=== PATIENT | male | born 1960 | race Caucasian/White ===

== ENCOUNTER 2018-03-26 23:12 | Emergency (ER) | payer SELFPAY ==
[~2018-03-26] VITALS: Ht 165.1 cm; Wt 77.3 kg
[~2018-03-26 23:12] MED LIST: ORAGEL
[2018-03-27 01:18] VITALS: BP 140/83
== END 2018-03-27 01:44 | disposition home or self-care (01) ==
LOC: EMS 23:12
DX: S09.93XA Unspecified injury of face, initial encounter (principal); S06.9X1A Unspecified intracranial injury with loss of consciousness of 30 minutes or less, initial encounter; F17.210 Nicotine dependence, cigarettes, uncomplicated; Y04.0XXA Assault by unarmed brawl or fight, initial encounter; Y93.89 Activity, other specified; Y92.89 Other specified places as the place of occurrence of the external cause; Y99.8 Other external cause status
CPT/HCPCS: 70450; 70486; 99284